=== PATIENT | male | born 1955 | race Caucasian/White ===

== ENCOUNTER 2024-06-09 17:05 | Emergency (ER) | payer OTHER ==
--- OUTSIDE RECORDS SUMMARY | 2024-06-09 17:11 | XMS REPORT | Continuity of Care Document ---
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 Role Phone Mike New Attending Clinician Unavailable BETHANY MARADIAGA Attending Clinician Unavailable Encounters Start Date/Time End Date/Time Encounter Type Admission Type Attending Clinicians Care Facility Care Department Encounter ID Source 2024-04-03 09:29:01 Outpatient New, [facility] [id number] [facility] 2023-12-26 14:04:00 Outpatient New, [facility] [id number] [facility] 2023-06-27 08:16:00 Outpatient New, [facility] [id number] [facility] 2023-03-03 11:12:01 Outpatient New, [facility] [id number] [facility] 2023-02-28 13:16:00 [facility] [id number] [facility] 2023-02-04 08:20:02 Outpatient New, [facility] [id number] [facility] 2022-11-22 10:08:01 [facility] [id number] [facility] 2022-09-21 14:10:04 Outpatient New, [facility] [id number] [facility] 2022-07-20 03:36:00 2022-07-20 08:20:00 Emergency ER BETHANY MARADIAGA [facility] [id number] [facility]
--- NOTE | 2024-06-09 18:50 | ER ---
Nurse's Notes [facility] Name: Maxwell Mcghee Age: 69 yrs Sex: Male : 1955 Arrival Date: 06/09/2024 Time: 17:05 Bed IW10 Private MD: Diagnosis: Presentation: 06/09 17:44 Note called from lobby and no answer. ap3 ED Course: 17:11 Patient arrived in ED. mg5 17:17 Jay Jean PA is PHCP. cp 17:17 Gerardo Willis MD is Attending Physician. cp Administered Medications: No medications were administered Outcome: 18:50 Patient left the ED. hb Signatures: Jay Jean PA PA cp Baxter, Heather, RN RN Danuta Panchal RN RN ap3 Greta Boswell mg5
== END 2024-06-09 18:50 | disposition left against medical advice (07) ==
LOC: ER 17:05
DX: Z02.9 Encounter for administrative examinations, unspecified (principal)